=== PATIENT | male | born 1945 | race Caucasian/White ===

== ENCOUNTER → 2017-03-05 | Outpatient (CLI) | payer MEDICARE, OTHER ==
[~2017-03-05] MED LIST: ASCO500 PO; ASPI81 PO; CEPH500 PO; DICL75TA5 PO; DIPH25CA85 PO; DOXY100C PO; FINA5TAB41 PO; LIDOCAINE HCL 2% 5 ML JELLY TP ONE; MIRT15 PO; NAPR-58 PO; TADA5TAB PO; TAMS-1 PO; TRAM50TA2 PO; ZOLP10TA7 PO
[2017-03-05 13:47] VITALS: BP 149/78
[2017-03-05 16:26] LABS: ALBUMIN 3.7 g/dL (3.4-5.0); BILIRUBIN,TOTAL 0.7 mg/dL (0.1-1.0); CALCIUM, TOTAL 9.1 mg/dL (8.8-10.5); CREATININE 1.21 mg/dL (0.60-1.30); POTASSIUM 4.3 mmol/L (3.5-5.1); TOTAL PROTEIN, SERUM 8.4 g/dL (6.4-8.2)
[2017-03-05 16:27] LABS: BASOPHILS % (AUTO) 0.5 % (0.0-2.0); EOSINOPHILS % (AUTO) 1.7 % (1.0-6.0); HEMATOCRIT 41.1 % (41-53); HEMOGLOBIN 13.6 g/dL (13.5-17.5); LYMPHOCYTES # (AUTO) 1.2 K/uL (1.0-4.8); LYMPHOCYTES % (AUTO) 14.4 % (22.0-44.0); MEAN CORPUSCULAR HEMOGLOBIN 31.1 pg (26.0-34.0); MEAN CORPUSCULAR HGB CONC 33.1 G/dL (31.0-37.0); MEAN CORPUSCULAR VOLUME 94 fL (80-100); MONOCYTES # (AUTO) 0.7 K/uL (0.1-1.0); MONOCYTES % (AUTO) 9.1 % (2.0-9.0); NEUTROPHILS # (AUTO) 6.1 K/uL (1.8-7.7); NEUTROPHILS % (AUTO) 74.3 % (40.0-70.0); PLATELET COUNT (AUTO) 296 K/uL (150-450); RED BLOOD CELL COUNT(AUTO) 4.38 MIL/uL (4.50-5.90); WHITE BLOOD COUNT (AUTO) 8.2 K/uL (4.5-11.0)
[2017-03-05 17:37] LABS: ERYTHROCYTE SEDIMENTATION RATE 52 MM/HR (0-15)
== END | disposition home or self-care (01) ==
LOC: HBOWC 11:58
PROVIDERS: ATTEND Internal Medicine
DX: S91.001D Unspecified open wound, right ankle, subsequent encounter (principal); Z87.891 Personal history of nicotine dependence; X58.XXXD Exposure to other specified factors, subsequent encounter
CPT/HCPCS: 11042; 36415; 73590; 73610; 80053; 85025; 85651; 86140; 87070; 87077; 87186; 87205; 93880; 93925; 93970; G0463

== ENCOUNTER → 2017-03-12 | Outpatient (CLI) | payer MEDICARE, OTHER ==
[~2017-03-12] MED LIST changes: -DICL75TA5 PO; -DIPH25CA85 PO; -LIDOCAINE HCL 2% 5 ML JELLY TP ONE; -TRAM50TA2 PO; -ZOLP10TA7 PO
[2017-03-12 14:29] VITALS: BP 157/71
== END | disposition home or self-care (01) ==
LOC: HBOWC 12:47
PROVIDERS: ATTEND Internal Medicine
DX: S91.001D Unspecified open wound, right ankle, subsequent encounter (principal); Z87.891 Personal history of nicotine dependence; X58.XXXD Exposure to other specified factors, subsequent encounter
CPT/HCPCS: 97597; 97598

== ENCOUNTER → 2017-03-19 | Outpatient (CLI) | payer MEDICARE, OTHER ==
[~2017-03-19] MED LIST changes: +FERR-89 PO; +LIDOCAINE HCL 4% 50 ML SOLUTION TP ONE; +PANT40TA25 PO
[2017-03-19 10:26] VITALS: BP 148/83
== END | disposition home or self-care (01) ==
LOC: HBOWC 09:42
PROVIDERS: ATTEND Internal Medicine
DX: S91.001D Unspecified open wound, right ankle, subsequent encounter (principal); S81.801D Unspecified open wound, right lower leg, subsequent encounter; Z87.891 Personal history of nicotine dependence; X58.XXXD Exposure to other specified factors, subsequent encounter
CPT/HCPCS: 97597; 97598

== ENCOUNTER → 2017-03-26 | Outpatient (CLI) | payer MEDICARE, OTHER ==
[~2017-03-26] MED LIST changes: -CEPH500 PO; -DOXY100C PO; +LIDOCAINE HCL 4% 50 ML SOLUTION ONE; -LIDOCAINE HCL 4% 50 ML SOLUTION TP ONE
[2017-03-26 14:02] VITALS: BP 145/70
== END | disposition home or self-care (01) ==
LOC: HBOWC 12:04
PROVIDERS: ATTEND Internal Medicine
DX: S91.001D Unspecified open wound, right ankle, subsequent encounter (principal); S81.801D Unspecified open wound, right lower leg, subsequent encounter; I87.2 Venous insufficiency (chronic) (peripheral); Z87.891 Personal history of nicotine dependence; X58.XXXD Exposure to other specified factors, subsequent encounter
CPT/HCPCS: 97597; 97598

== ENCOUNTER → 2017-04-09 | Outpatient (CLI) | payer MEDICARE, OTHER ==
[~2017-04-09] MED LIST changes: +LIDOCAINE HCL 2% 5 ML JELLY TP ONE; -LIDOCAINE HCL 4% 50 ML SOLUTION ONE
[2017-04-09 13:52] VITALS: BP 113/68
== END | disposition home or self-care (01) ==
LOC: HBOWC 12:01
PROVIDERS: ATTEND Internal Medicine
DX: S91.001D Unspecified open wound, right ankle, subsequent encounter (principal); S81.801D Unspecified open wound, right lower leg, subsequent encounter; I87.2 Venous insufficiency (chronic) (peripheral); Z87.891 Personal history of nicotine dependence; X58.XXXD Exposure to other specified factors, subsequent encounter
CPT/HCPCS: 97597; 97598

== ENCOUNTER → 2017-04-16 | Outpatient (CLI) | payer MEDICARE, OTHER ==
[~2017-04-16] MED LIST changes: -LIDOCAINE HCL 2% 5 ML JELLY TP ONE
[2017-04-16 14:37] VITALS: BP 119/71
== END | disposition home or self-care (01) ==
LOC: HBOWC 13:39
PROVIDERS: ATTEND Internal Medicine
DX: S91.001D Unspecified open wound, right ankle, subsequent encounter (principal); S81.801D Unspecified open wound, right lower leg, subsequent encounter; I87.2 Venous insufficiency (chronic) (peripheral); Z87.891 Personal history of nicotine dependence; X58.XXXD Exposure to other specified factors, subsequent encounter
CPT/HCPCS: 97597

== ENCOUNTER → 2017-04-23 | Outpatient (CLI) | payer MEDICARE, OTHER ==
[~2017-04-23] MED LIST changes: +LIDOCAINE HCL 2% 5 ML JELLY TP ONE
[2017-04-23 11:52] VITALS: BP 147/78
== END | disposition home or self-care (01) ==
LOC: HBOWC 11:03
PROVIDERS: ATTEND Internal Medicine
DX: S91.001D Unspecified open wound, right ankle, subsequent encounter (principal); S81.801D Unspecified open wound, right lower leg, subsequent encounter; I87.2 Venous insufficiency (chronic) (peripheral); Z87.891 Personal history of nicotine dependence; X58.XXXD Exposure to other specified factors, subsequent encounter